=== PATIENT | female | born 1995 | race Native Hawaiian/Other Pacific Islander ===

== ENCOUNTER 2016-11-27 12:23 | Emergency (ER) | payer BC ==
[~2016-11-27] VITALS: Ht 157.5 cm; Wt 59.0 kg
[~2016-11-27 12:23] MED LIST: AMOX500C85 PO; CLARITIN10 MG PO; FLUT0.05 NAS; PREVIFEM PO
[2016-11-27] MEDS ORDERED: OMEP20CA PO (13:47)
[2016-11-27] MEDS ORDERED: NITR100C56 PO (13:47)
[2016-11-27 14:00] LABS: PLATELET COUNT 223 K/uL (152-353); POTASSIUM 3.5 mmol/L (3.6-5.2); SODIUM 138 mmol/L (136-145)
[2016-11-27 18:00] VITALS: BP 116/62; TEMP 98
== END 2016-11-27 18:09 | disposition home or self-care (01) ==
LOC: ED 12:23
DX: K21.9 Gastro-esophageal reflux disease without esophagitis (principal); R10.31 Right lower quadrant pain
CPT/HCPCS: 36415; 80053; 81000; 81025; 85027; 86318; 96365; 96374; 99284; J1885; J2175; Q9963